=== PATIENT | female | born 1995 | race Caucasian/White ===

== ENCOUNTER 2018-01-02 12:50 | Outpatient (CLI) | payer BC, OTHER ==
[2018-01-02 14:22] LABS: HGB - HEMOGLOBIN 11.4 g/dL (12.0-16.0); MEAN CORPUSCULAR HEMOGLOBIN 32.2 pg (27.0-31.0); MEAN CORPUSCULAR HGB CONC 35.2 g/dL (32.0-36.0); MEAN CORPUSCULAR VOLUME 91.6 fL (81.0-99.0); MEAN PLATELET VOLUME 7.4 fL (7.9-10.8); RED BLOOD COUNT 3.55 10^6/uL (4.20-5.40); RED CELL DISTRIBUTION WIDTH 13.1 % (12.0-15.0); WHITE BLOOD COUNT 10.7 x10^3/uL (4.8-10.8)
== END 2018-01-02 12:51 | disposition home or self-care (01) ==
LOC: LAB 12:50
PROVIDERS: ATTEND Obstetrics & Gynecology
DX: Z34.90 Encounter for supervision of normal pregnancy, unspecified, unspecified trimester (principal)
CPT/HCPCS: 36415; 82950; 85027; 86850

== ENCOUNTER 2018-01-16 07:18 | Outpatient (CLI) | payer BC, OTHER | END 2018-01-16 07:19 | disposition home or self-care (01) | LOC: LAB 07:18 | PROVIDERS: ATTEND Obstetrics & Gynecology | DX: O99.810 Abnormal glucose complicating pregnancy (principal) | CPT/HCPCS: 36415; 82951; 82952 ==

== ENCOUNTER 2018-02-20 16:21 | Outpatient (CLI) | payer BC, OTHER ==
[2018-02-20] MEDS ORDERED: TERBUTALINE 1 MG/ML VIAL SUBQ ONE (19:11)
[2018-02-20] MEDS ORDERED: TERBUTALINE 2.5 MG TABLET PO ONE (20:08)
[2018-02-20 20:49] VITALS: BP 124/64
[2018-02-20] MEDS ORDERED: NIFEdipine 10 MG CAPSULE PO PRN (21:06)
[2018-02-20] MEDS ORDERED: NIFEdipine 10 MG CAPSULE PO ONE (21:21)
[2018-02-20] MEDS ORDERED: NIFEdipine ER 90 MG TABLET PO ONE (22:00)
[2018-02-21] MEDS ORDERED: TERBUTALINE 2.5 MG TABLET PO ONE (02:30)
== END 2018-02-21 02:00 | disposition home or self-care (01) ==
LOC: WFO 16:21 → FBP 19:27 → WFO 02-21 02:00
PROVIDERS: ATTEND Obstetrics & Gynecology
DX: O36.8130 Decreased fetal movements, third trimester, not applicable or unspecified (principal); Z3A.31 31 weeks gestation of pregnancy; O24.419 Gestational diabetes mellitus in pregnancy, unspecified control
CPT/HCPCS: 59025; 96372; 99213; A9270

== ENCOUNTER 2018-02-21 08:46 | Outpatient (CLI) | payer BC, OTHER ==
[2018-02-21 08:57] VITALS: BP 135/60
== END 2018-02-21 09:35 | disposition home or self-care (01) ==
LOC: WFO 08:46 → FBP 08:47 → WFO 09:35
PROVIDERS: ATTEND Obstetrics & Gynecology
DX: O99.89 Other specified diseases and conditions complicating pregnancy, childbirth and the puerperium (principal); R07.9 Chest pain, unspecified; Z3A.32 32 weeks gestation of pregnancy
CPT/HCPCS: 93005; 99213

== ENCOUNTER 2018-02-21 09:39 | Emergency (ER) | payer BC, OTHER ==
[2018-02-21 10:10] LABS: BASOPHILS # (AUTO) 0.1 10^3/uL (0.0-0.1); BASOPHILS % (AUTO) 0.4 %; EOSINOPHILS % (AUTO) 0.1 %; HGB - HEMOGLOBIN 10.8 g/dL (12.0-16.0); LYMPHOCYTES # (AUTO) 1.4 10^3/uL (1.5-3.5); LYMPHOCYTES % (AUTO) 11.1 %; MEAN CORPUSCULAR HEMOGLOBIN 31.5 pg (27.0-31.0); MEAN CORPUSCULAR HGB CONC 35.2 g/dL (32.0-36.0); MEAN CORPUSCULAR VOLUME 89.6 fL (81.0-99.0); MEAN PLATELET VOLUME 7.5 fL (7.9-10.8); MONOCYTES # (AUTO) 0.7 10^3/uL (0.0-1.0); MONOCYTES % (AUTO) 5.3 %; NEUTROPHILS # (AUTO) 10.8 10^3/uL (1.5-6.6); NEUTROPHILS % (AUTO) 83.1 %; PLT - PLATELET COUNT 175 10^3/uL (130-450); RED BLOOD COUNT 3.44 10^6/uL (4.20-5.40); RED CELL DISTRIBUTION WIDTH 12.9 % (12.0-15.0)
[2018-02-21 10:26] LABS: ALBUMIN 3.1 g/dL (3.2-5.5); ALBUMIN/GLOBULIN RATIO 0.9 (1.0-2.2); BILIRUBIN,TOTAL 0.4 mg/dL (0.2-1.0); CALCIUM 8.1 mg/dL (8.5-10.3); CREATININE 0.5 mg/dL (0.4-1.0); TOTAL PROTEIN 6.4 g/dL (6.7-8.2)
[2018-02-21 10:41] LABS: BILIRUBIN,URINE NEGATIVE (NEGATIVE); GLUCOSE, URINE (UA) NEGATIVE (NEGATIVE); KETONES,URINE (UA) NEGATIVE (NEGATIVE); LEUKOCYTE ESTERASE, URINE TRACE (NEGATIVE); NITRITE,URINE NEGATIVE (NEGATIVE); OCCULT BLOOD,URINE MODERATE (NEGATIVE); PROTEIN,URINE NEGATIVE (NEGATIVE); UROBILINOGEN,URINE 0.2 (NORMAL) E.U./dL (NORMAL)
[2018-02-21 10:42] LABS: CLARITY,URINE SL. CLOUDY (CLEAR)
[2018-02-21] MEDS ORDERED: LIDOCAINE VISCOUS 2% 15 ML UDC MM STA ×2 (10:49→11:22)
[2018-02-21] MEDS ORDERED: MAG HYDROX/AL HYDROX/SIMETH 30 ML UDC PO STA ×2 (10:50→11:22)
[2018-02-21 10:58] LABS: BACTERIA,URINE Few /HPF (None Seen); RBC,URINE 0-5 /HPF (0-5); SQUAMOUS EPITHELIAL CELL,UR FEW Squamous (<= Few)
[2018-02-21] MEDS ORDERED: SUCRALFATE 1 GM/10 ML UDC PO STA (11:22)
--- NOTE | 2018-02-21 11:25 | ED Physician Documentation ---
PD HPI CHEST PAIN - Stated complaint Stated Complaint: CHEST PX, L ARM PX - Chief complaint Chief Complaint: General - History obtained from History obtained from: Patient, Family - History of Present Illness Timing - onset: Enter time (0700), Today Timing - onset during: Rest Timing - duration: Hours Timing - details: Abrupt onset, Still present Quality: Pressure, Sharp Location: Left chest Radiation: Neck Improved by: Rest Associated symptoms: Nausea. No: Shortness of air, Diaphoresis, General Weakness, Palpitations Similar symptoms before: Has not had sx before Recently seen: Admitted - Additional information Additional information: Patient is a 22-year-old 1 para 0 who is at 24 weeks gestation who has developed some decreased movement and was evaluated in OB last night and given some terbutaline and nifediapine for more than 6 contractions per hour. She states that she went home about 2:30 in the morning took a second dose of her terbutaline as instructed and about 7:30 in the morning she developed pain in the left chest radiating to the left arm and heaviness to the left arm. She describes the pain as a pressure in the chest radiating to her back. Review of Systems Constitutional: denies: Fever Eyes: denies: Decreased vision Ears: denies: Ear pain Nose: denies: Congestion Throat: denies: Sore throat Cardiac: reports: Chest pain / pressure. denies: Palpitations, Pedal edema, Calf pain Respiratory: denies: Dyspnea, Cough GI: denies: Abdominal Pain, Abdominal Swelling, Nausea, Vomiting : denies: Dysuria, Frequency Skin: denies: Rash Musculoskeletal: denies: Neck pain, Back pain, Extremity pain Neurologic: denies: Generalized weakness, Focal weakness, Numbness PD PAST MEDICAL HISTORY - Past Medical History Past Medical History: No - Past Surgical History Past Surgical History: No - Allergies Allergies/Adverse Reactions: Allergies Allergy/AdvReac Type Severity Reaction Status Date / Time Iodinated Contrast- Oral and Allergy Severe Anaphylaxis Verified 02/20/18 16:58 IV Dye iodine Allergy Severe Anaphylaxis Verified 02/20/18 17:00 NSAIDS (Non-Steroidal Allergy Severe Anaphylaxis Verified 02/20/18 17:01 Anti-Inflamma omeprazole [From Prilosec] Allergy Severe Anaphylaxis Verified 02/20/18 17:00 peanut Allergy Severe Anaphylaxis Verified 02/20/18 17:11 shellfish derived Allergy Severe Anaphylaxis Verified 02/20/18 17:09 Sulfa (Sulfonamide Allergy Severe Anaphylaxis Verified 02/20/18 17:00 Antibiotics) tree nut Allergy Severe Anaphylaxis Verified 02/20/18 17:11 - Social History Does the pt smoke?: No Smoking Status: Never smoker Does the pt drink ETOH?: No Does the pt have substance abuse?: No - Immunizations Immunizations are current?: Yes PD ED PE NORMAL - Vitals Vital signs reviewed: Yes (tachy and hypertensive mild ) - General General: Alert and oriented X 3, Well developed/nourished, Other - HEENT HEENT: Atraumatic, PERRL - Neck Neck: Supple, no meningeal sign - Cardiac Cardiac: No murmur, Other (tachy to 115) - Respiratory Respiratory: No respiratory distress, Clear bilaterally - Abdomen Abdomen: Soft, Non tender, Other (gravid) - Back Back: No CVA TTP, No spinal TTP - Derm Derm: Normal color, Warm and dry, No rash - Extremities Extremities: No deformity, No edema - Neuro Neuro: Alert and oriented X 3, air traffic controller center 2-12 intact, No motor deficit, No sensory deficit, Normal speech Eye Opening: Spontaneous Motor: Obeys Commands Verbal: Oriented GCS Score: 15 - Psych Psych: Normal mood, Normal affect Results - Vitals Vitals: Vital Signs - 24 hr 02/21/18 02/21/18 02/21/18 09:50 10:51 11:38 Temperature 36.4 C L Heart Rate 117 H 110 H 104 H Respiratory 18 14 19 Rate Blood Pressure 134/70 H 136/77 H 139/81 H O2 Saturation 98 99 99 02/21/18 13:38 Temperature Heart Rate 105 H Respiratory 18 Rate Blood Pressure 115/70 O2 Saturation 98 Oxygen O2 Source Room air - EKG (time done) 0911 Rate: Rate (enter#) (129) Rhythm: Sinus tachycardia Ischemia: ST depression (borderline lateral leads) Compare to prior EKG: Old EKG unavailable Computer interpretation: Disagree with computer (I do not see pair ventricular complexes) 0943 Rate: Rate (enter#) (122) Rhythm: Sinus tachycardia Ischemia: ST depression (borderline in lateral leads ) Compare to prior EKG: Changed from prior EKG (SPT earlier today the rate has decreased slightly and the previously seen ST depression is nearly resolved. ) Computer interpretation: Agree with computer - Labs Labs: Laboratory Tests 02/21/18 02/21/18 02/21/18 10:04 10:04 10:04 WBC 13.0 H RBC 3.44 L Hgb 10.8 L Hct 30.8 L MCV 89.6 MCH 31.5 H MCHC 35.2 RDW 12.9 Plt Count 175 MPV 7.5 L Neut # (Auto) 10.8 H Lymph # (Auto) 1.4 L [place] # (Auto) 0.7 Eos # (Auto) 0.0 Baso # (Auto) 0.1 Absolute Nucleated RBC 0.00 Nucleated RBC % 0.0 Sodium 137 Potassium 2.9 L Chloride 105 Carbon Dioxide 22 Anion Gap 10.0 BUN 7 Creatinine 0.5 Estimated GFR (MDRD) 152 Glucose 119 H Calcium 8.1 L Total Bilirubin 0.4 AST 16 ALT 14 Alkaline Phosphatase 83 Troponin I < 0.04 Total Protein 6.4 L Albumin 3.1 L Globulin 3.3 Albumin/Globulin Ratio 0.9 L Lipase 23 Urine Color Urine Clarity Urine pH Ur Specific [place] Urine Protein Urine Glucose (UA) Urine Ketones Urine Occult Blood Urine Nitrite Urine Bilirubin Urine Urobilinogen Ur Leukocyte Esterase Urine RBC Urine WBC Ur Squamous Epith Cells Urine Bacteria Ur Microscopic Review Urine Culture Comments 02/21/18 02/21/18 10:29 12:32 WBC RBC Hgb Hct MCV MCH MCHC RDW Plt Count MPV Neut # (Auto) Lymph # (Auto) [place] # (Auto) Eos # (Auto) Baso # (Auto) Absolute Nucleated RBC Nucleated RBC % Sodium Potassium Chloride Carbon Dioxide Anion Gap BUN Creatinine Estimated GFR (MDRD) Glucose Calcium Total Bilirubin AST ALT Alkaline Phosphatase Troponin I < 0.04 Total Protein Albumin Globulin Albumin/Globulin Ratio Lipase Urine Color YELLOW Urine Clarity SL. CLOUDY Urine pH 7.0 Ur Specific [place] 1.015 Urine Protein NEGATIVE Urine Glucose (UA) NEGATIVE Urine Ketones NEGATIVE Urine Occult Blood MODERATE H Urine Nitrite NEGATIVE Urine Bilirubin NEGATIVE Urine Urobilinogen 0.2 (NORMAL) Ur Leukocyte Esterase TRACE H Urine RBC 0-5 Urine WBC 0-3 Ur Squamous Epith Cells FEW Squamous Urine Bacteria Few Ur Microscopic Review INDICATED Urine Culture Comments INDICATED - Rads (name of study) 2 veiw chest Radiology: Prelim report reviewed (Impression: Normal two-view chest radiography.), EMP read indepedently, See rad report PD MEDICAL DECISION MAKING - ED course Complexity details: reviewed old records, reviewed results, re-evaluated patient, considered differential, d/w patient, d/w family ED course: 22 y/o female at 24 weeks has developed chest pain after a dose of terbutiline this morning and this pain has persisted. Her contractions have stopped. She is administered a GI cocktail with some improvement that is temporary and not resolving. A second dose had no effect and my interpretation of this is that the pain is not in the esophagus. The patient's pulse is 120 on arrival and this improves over the time period of the visit. The patient is administered PO tylenol with improvement of her symptoms and now she can tease out a pleuritic component that is still present. Two troponins are negative and CXR is without abnormality to suggest any specific etiology such as dissection or infiltrate. We are going to blame this pain on the terbutiline and she will not take this medication. She did take nifedapine last night and her contractions are still under control. Dr. Joy is consulted in the case and comes to the ED for evaluation and assistance. Departure - Departure Disposition: 01 Home, Self Care Clinical Impression: Chest pain of uncertain etiology, Medication side effect Condition: Stable Instructions: ED Chest Pain Atypical Unkn Cause Follow-Up: Paul Joy MD [Provider Admit Priv/Credential] - Discharge Date/Time: 02/21/18 14:13
[2018-02-21] MEDS ORDERED: ACETAMINOPHEN 325 MG TABLET PO STA (13:00)
[2018-02-21 13:39] VITALS: BP 115/70
--- NOTE | 2018-02-21 13:41 | XRAY Report ---
Reason: left sided chest pain Procedure Date: 02/21/2018 Accession Number: [id number] / [id number] Procedure: XR - Chest 2 View X-Ray CPT Code: 25912 FULL RESULT: EXAM: CHEST RADIOGRAPHY EXAM DATE: 02/21/2018 01:26 PM. CLINICAL HISTORY: Left sided chest pain. COMPARISON: None. TECHNIQUE: 2 views. FINDINGS: Lungs/Pleura: Normal volumes. No focal consolidation or evidence of edema. No pleural effusion or pneumothorax. Mediastinum: Normal cardiomediastinal contour. Other: The bones are normal IMPRESSION: Normal 2-view chest radiography. RADIA
== END 2018-02-21 14:13 | disposition home or self-care (01) ==
LOC: ED 09:39
DX: O26.892 Other specified pregnancy related conditions, second trimester (principal); R07.9 Chest pain, unspecified; T48.6X5A Adverse effect of antiasthmatics, initial encounter; O99.89 Other specified diseases and conditions complicating pregnancy, childbirth and the puerperium; Z3A.24 24 weeks gestation of pregnancy; Z3A.32 32 weeks gestation of pregnancy
CPT/HCPCS: 36415; 71046; 80053; 81001; 83690; 84484; 85025; 87086; 93005; 99284; A9270; 81003; 99213

== ENCOUNTER 2018-03-03 15:33 | Outpatient (CLI) | payer BC, OTHER | END 2018-03-03 15:34 | disposition home or self-care (01) | LOC: LAB.R 15:33 | PROVIDERS: ATTEND Obstetrics & Gynecology | DX: O60.03 Preterm labor without delivery, third trimester (principal) | CPT/HCPCS: 82731 ==

== ENCOUNTER → 2018-03-17 | Outpatient (CLI) | payer BC, OTHER | LOC: LAB.R 17:15 | PROVIDERS: ATTEND Obstetrics & Gynecology | DX: Z36.85 Encounter for antenatal screening for Streptococcus B (principal) | CPT/HCPCS: 87081; 87797 ==

== ENCOUNTER 2018-03-21 18:35 | Outpatient (CLI) | payer BC, OTHER ==
[2018-03-21 18:59] VITALS: BP 135/86
[2018-03-21 19:14] LABS: BILIRUBIN,URINE NEGATIVE (NEGATIVE); GLUCOSE, URINE (UA) NEGATIVE (NEGATIVE); KETONES,URINE (UA) 15 mg/dL (NEGATIVE); LEUKOCYTE ESTERASE, URINE TRACE (NEGATIVE); NITRITE,URINE NEGATIVE (NEGATIVE); OCCULT BLOOD,URINE TRACE-INTA (NEGATIVE); PROTEIN,URINE NEGATIVE (NEGATIVE); UROBILINOGEN,URINE 0.2 (NORMAL) E.U./dL (NORMAL)
[2018-03-21 19:16] LABS: CLARITY,URINE CLEAR (CLEAR)
[2018-03-21 19:22] LABS: BACTERIA,URINE Rare /HPF (None Seen); RBC,URINE 0-5 /HPF (0-5); SQUAMOUS EPITHELIAL CELL,UR FEW Squamous (<= Few)
== END 2018-03-21 22:11 | disposition home or self-care (01) ==
LOC: WFO 18:35 → FBP 18:38 → WFO 22:11
PROVIDERS: ATTEND Obstetrics & Gynecology
DX: O47.03 False labor before 37 completed weeks of gestation, third trimester (principal); Z3A.36 36 weeks gestation of pregnancy
CPT/HCPCS: 81001; 99213

== ENCOUNTER 2018-04-14 16:19 | Outpatient (CLI) | payer BC, OTHER ==
[2018-04-14 16:38] LABS: BASOPHILS % (AUTO) 0.4 %; EOSINOPHILS # (AUTO) 0.1 10^3/uL (0.0-0.7); EOSINOPHILS % (AUTO) 0.6 %; LYMPHOCYTES # (AUTO) 2.1 10^3/uL (1.5-3.5); LYMPHOCYTES % (AUTO) 19.4 %; MEAN CORPUSCULAR HEMOGLOBIN 29.6 pg (27.0-31.0); MEAN CORPUSCULAR HGB CONC 33.3 g/dL (32.0-36.0); MEAN CORPUSCULAR VOLUME 89.1 fL (81.0-99.0); MEAN PLATELET VOLUME 8.7 fL (7.9-10.8); MONOCYTES # (AUTO) 0.8 10^3/uL (0.0-1.0); MONOCYTES % (AUTO) 7.3 %; NEUTROPHILS % (AUTO) 72.3 %; PLT - PLATELET COUNT 198 10^3/uL (130-450); RED BLOOD COUNT 4.05 10^6/uL (4.20-5.40); RED CELL DISTRIBUTION WIDTH 13.1 % (12.0-15.0); WHITE BLOOD COUNT 11.1 x10^3/uL (4.8-10.8)
== END 2018-04-14 16:20 | disposition home or self-care (01) ==
LOC: LAB 16:19
PROVIDERS: ATTEND Obstetrics & Gynecology
DX: Z01.812 Encounter for preprocedural laboratory examination (principal); O32.1XX0 Maternal care for breech presentation, not applicable or unspecified
CPT/HCPCS: 36415; 85025; 86850; 86900; 86901

== ENCOUNTER 2018-04-15 06:00 | Inpatient (IN) | payer BC, OTHER ==
--- NOTE | 2018-04-14 18:08 | PREOP HISTORY & PHYSICAL ---
DATE OF SERVICE: 04/14/2018 Physician: Jemma Nogueira DO IDENTIFICATION: This is a 22-year-old G1, P0 with a 39-4/7 week intrauterine . EDC is 04/04, consistent with a 10-week ultrasound. HISTORY OF PRESENT ILLNESS: This is a patient of [facility] who had transferred her care from the [facility] over to us. Patient has been noted to have a breech presentati on of her baby girl Ildefonso for the past several weeks. Today on a bedside ultrasound, I have reconf irmed that the baby does continue to be a dev breech. Patient is accompanied today by her Greta doshi. I discussed with patient and Alvino the risks, benefits, alternatives and indications and exp ectations of a primary delivery for breech presentation. Included in our discussion of the risks of hemorrhage, infection and damage to surrounding organs, which may include, but are not limit ed to an inadvertent laceration, cauterization or ligation of the adjacent ureters, bladder, and inte saturnino. Furthermore, with the surgery, she may have nerve damage which may result in either a prickl ing sort of sensation or numbness around the incision. Surgery is known to cause adhesions, which ma y lead to chronic pelvic pain. After patient questions were answered to her satisfaction, she verbal ized her desire to proceed with surgery. Consents forms have been signed. I did tell patient that I intend to do a low transverse section of her uterus, so that in the future, should she deci de to that would be a viable option. Currently, patient is doing well. Denies any vaginal bleeding, loss of fluids or contractions. Baby bandar Fregoso is moving well. She denies any diarrhea, constipation, or diarrhea. PAST MEDICAL HISTORY: None. She denies any hypertension, diabetes, thyroid disorder, asthma, depres melissa or anxiety. PAST SURGICAL HISTORY: [place] teeth, colonoscopy and EGD. MEDICATIONS: 1. vitamins. 2. Zyrtec 10 mg p.r.n. ALLERGIES: 1. BACTRIM IN WHICH SHE HAS HIVES AND ANAPHYLAXIS. 2. LATEX IN WHICH SHE HAS A RASH. 3. NSAIDS AND PRILOSEC. SHE HAS ANAPHYLAXIS. SOCIAL HISTORY: She denies any tobacco, alcohol or illicit drug use. PAST SURGICAL HISTORY, CURRENT: Significant for breech presentation as well as GDM 1. Her diabetes has been well controlled slowly by diet. PAST GYNECOLOGICAL HISTORY: She denies any abnormal Pap smears and also denies any sexually transmit briseida diseases. She would like to breastfeed and has a breast pump at home. FAMILY HISTORY: Noncontributory. REVIEW OF SYSTEMS: Negative unless otherwise noted. PHYSICAL EXAMINATION: VITAL SIGNS: Weight is 199 pounds, blood pressure 130/82. GENERAL: Patient is a well-developed, well-nourished, female, in no apparent distress. She is alert and oriented x3. Patient is very pleasant and easy to speak to. HEENT: Within normal limits. HEART: Regular. No murmurs or rubs. LUNGS: Lungs are clear to auscultation bilaterally. ABDOMEN: Gravid, nontender. Estimated weight is 8 pounds. Baby continues to be a dev breec h with the back towards the maternal left side. LABORATORY STUDIES: Show that she is A positive, antibody screen is negative. Hepatitis B nonreacti ve. hep C nonreactive, rubella immune. GC and CT are both negative. HIV is nonreactive. One-hour GTT on 01/02/2018 was 173 and H and H at that time was 11.4 and 32.5, platelets 185. Three-hour GTT performed on 01/16/2018 showed elevated 1-hour/2 hour results. Fasting One-hour GTT is 193, 2-hour i s 158 and 3 hour is 82. On 11/28/2017, anatomical survey was consistent with dates and within normal limits. The anterior placenta is noted with a 3-vessel cord. Cervix measures 4.7 cm. ASSESSMENT: 1. A 22-year-old G1, P0 with a 39-4/7 week intrauterine . 2. Breech presentation. 3. Gestational diabetes mellitus A1, well controlled. PLAN: 1. We will proceed to a scheduled primary delivery on 04/15/2018 for breech presentation. 2. It will be difficult in terms of controlling patient's pain since she cannot take NSAIDs. Kelin rangel has been told to take Tylenol 1 gram p.o. every 8 hours and has been given a prescription for oxyc odone for any breakthrough pain. 3. Anticipate using Prevena wound VAC and patient is to return to see me next week for its removal. 4. Patient to get a CBC and type and screen as well as point of care glucose test tomorrow morning. 5. Patient is to see me for a routine 3-week visit. TD: 04/14/2018 16:41
[~2018-04-15 06:00] MED LIST: OXYTOCIN/SODIUM CHLORIDE 500 ML IV SCH; SODIUM CHLORIDE FLUSH 0.9% 10 ML SYRINGE IVP PRN; ceFAZolin 2 GM in SODIUM CHLORIDE 0.9% MINIBAG 100 ML IV SCH
[2018-04-15] MEDS ORDERED: ONDANSETRON 4 MG/2 ML VIAL IVP PRN (07:00)
[2018-04-15] MEDS: LACTATED RINGERS 1,000 ML IV SCH ×3 (07:10→22:50)
[2018-04-15] MEDS ORDERED: CITRIC ACID/SODIUM CITRATE 15 ML UDC PO ONE ×2 (07:57→09:00)
--- NOTE | 2018-04-15 08:00 | ANESTHESIA ---
Pre-Anesthesia VS, & Labs - Diagnosis Breech presentation, gestational diabetes - Procedure Section Vital Signs: Temp Pulse Resp BP Pulse Ox 36.9 C 94 16 137/88 H 100 04/15/18 07:00 04/15/18 07:00 04/15/18 07:00 04/15/18 07:00 04/15/18 07:00 Height 5 ft 6 in Weight (kg) 89.811 kg Body Mass Index 28.2 - NPO >8 hours - Is Patient ?: Yes Estimated Due Date:: 04/18/18 - Lab Results Current Lab Results: Laboratory Tests 04/15/18 07:19: POC Whole Bld Glucose 78 Lab results reviewed: Yes Home Medications and Allergies Active Medications Citric Acid/Sodium Citrate (Bicitra) 30 ml PO ONCE ONE Stop: 04/15/18 09:01 Cefazolin Sodium 2 gm/ Sodium (Chloride) 100 mls @ 200 mls/hr IV Q8H ENMANUEL Lactated Ringer's (Lr) 1,000 mls @ 150 mls/hr IV .Q6H40M ENMANUEL Last Admin: 04/15/18 07:10 Dose: 150 mls/hr Oxytocin/Sodium Chloride (Pitocin/Sodium Chloride) 500 mls @ 1 mls/hr IV TITR ENMANUEL; Protocol Ondansetron HCl (Zofran Inj) 4 mg IVP Q4H PRN PRN Reason: Nausea / Vomiting Sodium Chloride (Normal Saline Flush 0.9%) 10 ml IVP PRN PRN PRN Reason: NEEDED PER PROVIDER ORDERS Sodium Chloride (Normal Saline Flush 0.9%) 10 ml IVP 0100,0900,1700 [facility] Cetirizine [ZyrTEC] 03/21/18 Vit Calc,Iron,Folic [ Vitamins] 03/21/18 Allergies/Adverse Reactions: Allergies Allergy/AdvReac Type Severity Reaction Status Date / Time Iodinated Contrast- Oral and Allergy Severe Anaphylaxis Verified 02/20/18 16:58 IV Dye iodine Allergy Severe Anaphylaxis Verified 02/20/18 17:00 NSAIDS (Non-Steroidal Allergy Severe Anaphylaxis Verified 02/20/18 17:01 Anti-Inflamma omeprazole [From Prilosec] Allergy Severe Anaphylaxis Verified 02/20/18 17:00 peanut Allergy Severe Anaphylaxis Verified 02/20/18 17:11 shellfish derived Allergy Severe Anaphylaxis Verified 02/20/18 17:09 Sulfa (Sulfonamide Allergy Severe Anaphylaxis Verified 02/20/18 17:00 Antibiotics) tree nut Allergy Severe Anaphylaxis Verified 02/20/18 17:11 latex AdvReac Itching Verified 04/15/18 07:09 nifedipine AdvReac Anaphylaxis Verified 03/21/18 19:26 terbutaline AdvReac Anaphylaxis Verified 03/21/18 19:25 Anes History & Medical History - Anesthetic History Anesthesia Complications: reports: No previous complications Family history of Anesthesia Complications: Denies Family history of Malignant Hyperthermia: Denies - Medical History Smoking Status: Never smoker - Surgical History General: Colonoscopy, EGD Eyes Ears Nose Throat (EENT): Other (wisdom teeth extraction) - Obstetrical History : 1 Parity: 0 Events: positive: Gestational diabetes Complications: positive: Other (breech) Exam General: Alert, Oriented x3, Cooperative, No acute distress Dental: WNL Mouth Openin Fingerbreadth Neck Mobility: Normal Mallampati classification: II Thyromental Distance: 4-6 cm Respiratory: Lungs clear, Normal breath sounds, No respiratory distress Cardiovascular: Regular rate Neurological: Normal speech Mental/Cognitive Status: Alert/Oriented X3 Cognitive Status: Within normal limits Plan Anesthesia Type: Spinal Consent for Procedure(s) Verified and Reviewed: Yes Code Status: Attempt Resuscitation ASA classification: 2-Mild systemic disease Is this case an emergency?: No
[2018-04-15] MEDS ORDERED: LACTATED RINGERS 1,000 ML IV ONE (10:30)
[2018-04-15] MEDS ORDERED: OXYTOCIN/SODIUM CHLORIDE 500 ML IV ONE (10:45)
[2018-04-15] MEDS ORDERED: MORPHINE 10 MG/ML VIAL IVP ONE (10:51)
[2018-04-15] MEDS ORDERED: ePHEDrine 50 MG/ML VIAL IVP ONE (10:51)
[2018-04-15] MEDS ORDERED: fentaNYL 100 MCG/2 ML VIAL IVP ONE (10:51)
[2018-04-15] MEDS ORDERED: ACETAMINOPHEN 1,000 MG/100 ML 100 ML IV ONE (10:51)
--- NOTE | 2018-04-15 11:04 | OPERATIVE REPORT ---
Operative Report - General Admit Date: 04/15/18 - Other Other Information/Narrative: Date of Operation: 04/15/2018 Surgeon: Jemma Nogueira DO FACOG Cell Tender: Paul Joy MD FACOG Tailor'S Aide: Soraida Villatoro CRNA Anesthesia: Spinal Pre-op Dx: 1. 22 yo with a 39w4d IUP 2. Breech 3. GDMA1 Post-op Dx 1. 22 yo with a 39w4d IUP 2. Breech 3. GDMA1 Procedure: delivery Findings: Single viable female fetus in dev breech presentation, "Ildefonso". Apgars 6/8. Normal uterus, ovaries and fallopian tubes. Specimens: 1. Cord blood 2. Placenta (to medical waste) 3. Cord gases Drains: 1. Marina catheter to gravity 2. Prevena wound vac EBL: 600 mL Complications: None Dictation: [id number]
[2018-04-15] MEDS ORDERED: HYDROmorphone 2 MG TABLET PO PRN (11:07)
[2018-04-15] MEDS ORDERED: MAGNESIUM HYDROXIDE 2,400 MG/30 ML UDC PO PRN (11:07)
[2018-04-15] MEDS: OXYTOCIN/SODIUM CHLORIDE 500 ML IV SCH (12:35)
[2018-04-15] MEDS: oxyCODONE 5 MG TABLET PO SCH (14:58)
--- NOTE | 2018-04-15 17:23 | OPERATIVE REPORT ---
DATE OF OPERATION: 04/15/2018 SURGEON: Jemma Nogueira DO, FACOG DIPLOMA DENTAL ASSISTANT: Paul Joy MD FACOG MANAGER CALL: oSraida Villatoro CRNA ANESTHESIA: Spinal. PREOPERATIVE DIAGNOSES: 1. 22-year-old, G1, P0, at 39-4/7 week intrauterine . 2. Breech. 3. GDM A1. POSTOPERATIVE DIAGNOSES: 1. 22-year-old G1, P0 at 39-4/7 week intrauterine . 2. Breech. 3. GDM A1. PROCEDURE: delivery. FINDINGS: Single viable female fetus in dev breech presentation, named Ildefonso. Apgars were 6 and 8 at 1 and 5 minutes respectively. Normal uterus, ovaries and fallopian tubes. SPECIMENS: 1. Cord blood. 2. Cord gases. 3. Placenta to medical waste. DRAINS: 1. Marina catheter to gravity. 2. Prevena wound VAC. ESTIMATED BLOOD LOSS: 600 mL COMPLICATIONS: None. BRIEF HISTORY: The patient is a patient of [facility] who had care in the [place] but transferred to us. Bety was noted to have a breech presentation baby. She was offered an external cephalic version, but she declined this. I discussed with the patient the risks, benefits, alternatives, indications, and expectations of a delivery. Included in our discussion of the risks of hemorrhage, infection and damage to surrounding organs, which may include, but not limited to an inadvertent laceration, cauterization or ligation of the adjacent intestines, bladder and ureters. Furthermore, with the surgery, there can be a permanent nerve damage, as well as chronic pelvic pain secondary to adhesions. After all of the patient's questions were answered to her satisfaction, she verbalized her desire to proceed to a scheduled delivery. Consent forms have been signed. OPERATIVE PROCEDURE IN DETAIL: The patient was identified, consented, taken to the operating room where IV access was already in place. She was then given a satisfactory spinal anesthesia per Soraida Villatoro. The patient was then given a Marina catheter and then prepped and draped in normal sterile fashion in the dorsal supine position with a leftward tilt. Skin testing was found to be satisfactory. A timeout was performed, which correctly identified the patient and the procedure itself. Two grams of IV Ancef were given to the patient prior to start of incision. The Pfannenstiel skin incision was made approximately 2 fingerbreadths above the level of pubic symphysis. This incision was then carried to the underlying layer of fascia with electrocautery and then extended laterally. Rectus muscles were then dissected off the fascia. The rectus muscles were then bluntly in the midline and the peritoneum entered bluntly as well. A bladder flap was then created by dissecting out the vesicouterine peritoneum. In a transverse U-shaped fashion, the hysterotomy was made in the lower uterine segment. Amniotomy revealed yellow tinged amniotic fluid with mature meconium floating in the water. With the help of fundal pressure, the 's buttocks were delivered through the hysterotomy. The hips were then rotated to be sacrum anterior. A blue clot was then placed on top of the fetus. The baby was then delivered through the level of the nipples. The legs were then gently delivered. The right shoulder was rotated anteriorly and the right arm was swept medially and inferiorly in order to avoid hyperextension. In a similar fashion, the left shoulder was then rotated anteriorly and then the left arm was swept medially and inferiorly. A finger was placed in the mouth in order to flex the neck and to avoid hyperextension. With the help of fundal pressure, the infant's head delivered through the hysterotomy. The nose and mouth were suctioned with a bulb syringe. The umbilical cord was doubly clamped and cut and handed off to the waiting OB nurses. The baby did not have spontaneous breaths immediately after delivery. Apgars were later found to be 6 and 8 at 1 and 5 minutes respectively. Cord gases were obtained in addition to cord blood. The uterus was massaged and placenta delivered manually. The uterus was then delivered out of the abdomen and cleared of all clots and debris. The hysterotomy was closed with 2 sutures of 0 Vicryl in a running locked fashion and then in an imbricating fashion using Lembert stitch. There was some bleeding on the right aspect of the uterus that was hemostatically controlled with 0 Vicryl. There were some areas of decidual effect on the uterus on the anterior surface by the right corner and then on the upper left corner by the insertion of the fallopian tube. Electrocautery was used to obtain hemostasis. The cul-de-sac was irrigated and found to be hemostatically stable. The uterus was then returned to the abdomen and the abdomen was then irrigated. Some bleeding was noted in the right corner and another suture of 0 Vicryl stopped the bleeding. The peritoneum was then closed with a running stitch of 2-0 Vicryl. The same stitch was used to reapproximate the rectus muscles. Fascia was then closed with 0 Vicryl in a running fashion. Yanira's fascia was then reapproximated with 0 Vicryl in a running fashion. Skin was then closed with 4- 0 Monocryl and a Prevena wound VAC was placed on top of the incision. The patient tolerated the procedure well and was taken back to the recovery room in stable and awake condition. She will be given routine Tylenol and oxycodone. Unfortunately, the patient cannot tolerate NSAIDs as it GIVES HER ANAPHYLAXIS. All sponge, lap, and needle counts were correct x2 as per nurse. TD: 04/15/2018 11:17 [email or web address]
[2018-04-15] MEDS: ACETAMINOPHEN 500 MG TABLET PO SCH (17:57)
[2018-04-15] MEDS: SODIUM CHLORIDE FLUSH 0.9% 10 ML SYRINGE IVP SCH ×2 (20:56→20:58)
[2018-04-15] MEDS: SIMETHICONE CHEW 80 MG TABLET PO SCH (21:28)
[2018-04-15] MEDS: DOCUSATE SODIUM 100 MG CAPSULE PO SCH ×2 (21:37→22:51)
[2018-04-16] MEDS: ACETAMINOPHEN 500 MG TABLET PO SCH ×3 (03:44→18:45)
[2018-04-16] MEDS: oxyCODONE 5 MG TABLET PO SCH ×5 (04:08→20:13)
[2018-04-16] MEDS: SIMETHICONE CHEW 80 MG TABLET PO SCH ×3 (09:13→18:45)
--- NOTE | 2018-04-16 11:12 | ANESTHESIA POST OP EVALUATION ---
Anesthesia Post Eval - Post Anesthesia Eval CV Function Including HR & BP: positive: Stable Pain Control: positive: Adequate Nausea & Vomiting: positive: Negative Mental Status: positive: Appropriate Anesthesia Complications: positive: None (Pt denies any numbness, weakness or headache. Reported adequate surgical anesthesia. No apparent anesthesia complications)
[2018-04-16] MEDS: DOCUSATE SODIUM 100 MG CAPSULE PO SCH (13:05)
--- NOTE | 2018-04-16 13:26 | PROVIDER PROGRESS NOTE ---
Subjective - Prog Note Date Prog Note Date: 04/16/18 Prog Note Time: 13:24 - Subjective Pt reports feeling: Improved (Patient lying in bed. and parents at bedside. Wound vac was beeping. Ambulating and tolerating a regular diet.) Objective - Vital Signs/Intake & Output Vital Signs: Vital Signs x48h Temp Pulse Resp BP Pulse Ox 04/16/18 12:33 98.4 F 82 16 133/70 H 99 04/16/18 10:00 98.8 F 85 16 135/79 H 99 Intake & Output: Intake & Output 04/13/18 04/14/18 04/15/18 04/16/18 23:59 23:59 23:59 23:59 Intake Total 4980 2150 Output Total 1950 3650 Balance 3030 -1500 - Objective General Appearance: positive: No acute distress Abdomen: positive: Non-tender (Wound vac in place and working well. Instructions given.) Neurologic/Psychiatric: positive: Oriented x3, Sensation nml, Mood/affect nml Assessment/Plan - Problem List (1) delivery delivered Impression: 22 yo S/p CD, POD #1 Normal recovery Continue current care D/C saline lock Shower today. Miralax PRN [place] home tomorrow
[2018-04-16] MEDS ORDERED: POLYETHYLENE GLYCOL 3350 17 GM PACKET PO PRN (13:28)
[2018-04-17] MEDS: oxyCODONE 5 MG TABLET PO SCH ×4 (00:02→13:12)
[2018-04-17] MEDS: ACETAMINOPHEN 500 MG TABLET PO SCH ×2 (01:51→10:52)
[2018-04-17] MEDS: DOCUSATE SODIUM 100 MG CAPSULE PO SCH ×2 (06:45→13:07)
[2018-04-17] MEDS: SODIUM CHLORIDE FLUSH 0.9% 10 ML SYRINGE IVP SCH (08:01)
[2018-04-17] MEDS: SIMETHICONE CHEW 80 MG TABLET PO SCH ×2 (08:03→09:07)
[2018-04-17] MEDS: OXYTOCIN/SODIUM CHLORIDE 500 ML IV SCH (08:03)
[2018-04-17 08:50] VITALS: BP 131/77
--- NOTE | 2018-04-17 09:02 | Discharge Plan ---
Discharge Plan Disposition: 01 Home, Self Care Condition: Good Diet: Regular Activity Restrictions: Activity as Tolerated Shower Restrictions: No Driving Restrictions: No No Smoking: If you smoke, Please STOP! Call for help. Follow-up with: Jemma Nogueira DO [Provider Admit Priv/Credential] -
[2018-04-17 10:00] LABS: BASOPHILS # (AUTO) 0.1 10^3/uL (0.0-0.1); BASOPHILS % (AUTO) 0.6 %; EOSINOPHILS # (AUTO) 0.1 10^3/uL (0.0-0.7); EOSINOPHILS % (AUTO) 0.7 %; HGB - HEMOGLOBIN 10.5 g/dL (12.0-16.0); MEAN CORPUSCULAR HEMOGLOBIN 30.3 pg (27.0-31.0); MEAN CORPUSCULAR HGB CONC 34.4 g/dL (32.0-36.0); MEAN CORPUSCULAR VOLUME 88.2 fL (81.0-99.0); MEAN PLATELET VOLUME 7.9 fL (7.9-10.8); MONOCYTES # (AUTO) 0.7 10^3/uL (0.0-1.0); MONOCYTES % (AUTO) 5.4 %; NEUTROPHILS # (AUTO) 10.5 10^3/uL (1.5-6.6); NEUTROPHILS % (AUTO) 78.3 %; PLT - PLATELET COUNT 200 10^3/uL (130-450); RED BLOOD COUNT 3.45 10^6/uL (4.20-5.40); RED CELL DISTRIBUTION WIDTH 13.1 % (12.0-15.0); WHITE BLOOD COUNT 13.3 x10^3/uL (4.8-10.8)
--- NOTE | 2018-04-17 11:48 | DISCHARGE SUMMARY ---
Physician: Paul Eagle MD DATE OF ADMISSION: 04/14/2018 DATE OF DISCHARGE: 04/17/2018 DIAGNOSES 1. Primary section for confirmed persistent breech. 2. rejected after counseling. PROCEDURE PERFORMED: Primary lower segment transverse section, yielding a living female . COMPLICATIONS: None. HISTORY: Patient received her care at both the [facility] and the [facility]. She transferred care to [facility] and was found to be a persistent breech presentation. Reference Dr. Nogueira's detailed preoperative history. HOSPITAL COURSE: The patient was admitted for a section. She received a customary [facility] preoperative antibiotics. Fetus was confirmed in the dev breech presentation. Surgery proceeded uneventfully to yield a living female weighing xx with Apgars of 6 and 8. Refer to 's Op Note. Total blood loss was 600 mL, and the patient went to the recovery room in good condition. Postoperatively, the patient did well and was hemodynamically stable. The patient's glucose fingersticks were good postopn(78). Postop Hgb = 10.6 On postoperative day #2, I had a conversation with the patient and she strongly desired discharge home. I explained to her that she should have help at home and her parents have come from [place] for that purpose. We reviewed warning sign and callback instructions. Final wound check found a wound VAC functional and no problems with mild lochia. FOLLOWUP: The patient will see Dr. Nogueira in one week for wound VAC removal. DISCHARGE MEDICATIONS 1. Celebrex and [place] 325/5 po q4h prn for breakthrough pain. 2. Colace. TD: 04/17/2018 09:21 [facility]
== END 2018-04-17 13:20 | disposition home or self-care (01) | DRG 788 ==
LOC: FBP 06:00
PROVIDERS: ADMIT Obstetrics & Gynecology; ATTEND Obstetrics & Gynecology
PROC: 10D00Z1 Extraction of Products of Conception, Low, Open Approach (ICD-10-PCS; principal; 2018-04-15 08:45)
DX: O32.1XX0 Maternal care for breech presentation, not applicable or unspecified (principal); O24.420 Gestational diabetes mellitus in childbirth, diet controlled; Z3A.39 39 weeks gestation of pregnancy; Z37.0 Single live birth; Z88.6 Allergy status to analgesic agent
CPT/HCPCS: 36415; 85025

== ENCOUNTER 2018-06-05 07:58 | Outpatient (CLI) | payer BC, OTHER | END 2018-06-05 07:59 | disposition home or self-care (01) | LOC: LAB 07:58 | PROVIDERS: ATTEND Obstetrics & Gynecology | DX: Z86.32 Personal history of gestational diabetes (principal) | CPT/HCPCS: 36415; 82951 ==

== ENCOUNTER 2018-08-27 18:51 | Emergency (ER) | payer BC, OTHER ==
[2018-08-27] MEDS ORDERED: SODIUM CHLORIDE 0.9% 1,000 ML IV ONE ×2 (19:01→20:00)
[2018-08-27] MEDS ORDERED: ONDANSETRON 4 MG/2 ML VIAL IVP STA (19:01)
[2018-08-27 19:15] LABS: GLUCOSE, URINE (UA) NEGATIVE (NEGATIVE); KETONES,URINE (UA) >=80 mg/dL (NEGATIVE); LEUKOCYTE ESTERASE, URINE NEGATIVE (NEGATIVE); NITRITE,URINE NEGATIVE (NEGATIVE); OCCULT BLOOD,URINE SMALL (NEGATIVE); PH,URINE 5.5 PH (5.0-7.5); PROTEIN,URINE TRACE mg/dL (NEGATIVE); UROBILINOGEN,URINE 0.2 (NORMAL) E.U./dL (NORMAL)
[2018-08-27 19:18] LABS: BILIRUBIN,URINE NEGATIVE (NEGATIVE); CLARITY,URINE CLEAR (CLEAR); HCG UR QUAL NEGATIVE; ICTOTEST,URINE NEGATIVE
[2018-08-27 19:26] LABS: BACTERIA,URINE None Seen /HPF (None Seen); RBC,URINE 0-5 /HPF (0-5); SQUAMOUS EPITHELIAL CELL,UR FEW Squamous (<= Few)
[2018-08-27 19:27] LABS: BASOPHILS % (AUTO) 0.1 %; EOSINOPHILS % (AUTO) 0.1 %; HGB - HEMOGLOBIN 15.5 g/dL (12.0-16.0); LYMPHOCYTES # (AUTO) 0.5 10^3/uL (1.5-3.5); LYMPHOCYTES % (AUTO) 3.4 %; MEAN CORPUSCULAR HGB CONC 34.1 g/dL (32.0-36.0); MEAN CORPUSCULAR VOLUME 85.2 fL (81.0-99.0); MEAN PLATELET VOLUME 8.3 fL (7.9-10.8); MONOCYTES # (AUTO) 0.2 10^3/uL (0.0-1.0); MONOCYTES % (AUTO) 1.5 %; NEUTROPHILS # (AUTO) 13.8 10^3/uL (1.5-6.6); NEUTROPHILS % (AUTO) 94.9 %; PLT - PLATELET COUNT 236 10^3/uL (130-450); RED BLOOD COUNT 5.35 10^6/uL (4.20-5.40); RED CELL DISTRIBUTION WIDTH 14.3 % (12.0-15.0); WHITE BLOOD COUNT 14.6 x10^3/uL (4.8-10.8)
[2018-08-27 19:33] LABS: ALBUMIN/GLOBULIN RATIO 1.5 (1.0-2.2); BILIRUBIN,TOTAL 1.1 mg/dL (0.2-1.0); CALCIUM 9.2 mg/dL (8.5-10.3); CREATININE 0.9 mg/dL (0.4-1.0); TOTAL PROTEIN 8.4 g/dL (6.7-8.2)
--- NOTE | 2018-08-27 19:53 | ED Physician Documentation ---
PD HPI NVD - Stated complaint Stated Complaint: ABD PX/VOMITING - Chief complaint Chief Complaint: Abd Pain - History obtained from History obtained from: Patient, Family - History of Present Illness Timing - onset: How many hours ago (10), Today Timing - duration: Hours (10) Timing - details: Abrupt onset Pain level max: 7 Pain level now: 4 Associated symptoms: Abdominal pain (Crampy, diffuse). 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 No: Bad food, Travel, Recent antibiotics, Alcohol use, Anticoagulated, Diabetes Improved by: Vomiting Worsened by: Eating Similar symptoms before: Has not had sx before Recently seen: Not recently seen Review of Systems Constitutional: denies: Fever Nose: denies: Rhinorrhea / runny nose Throat: denies: Sore throat Cardiac: denies: Chest pain / pressure GI: reports: Abdominal Pain (crampy), Nausea, Vomiting, Diarrhea Skin: denies: Rash Musculoskeletal: denies: Neck pain, Back pain Neurologic: denies: Headache PD PAST MEDICAL HISTORY - Past Medical History Past Medical History: Yes - Past Surgical History Past Surgical History: No General: Colonoscopy, EGD HEENT: Other - Present Medications Home Medications: Ambulatory Orders Medication Instructions Recorded Confirmed Cetirizine [ZyrTEC] 03/21/18 Vit Calc,Iron,Folic 03/21/18 [ Vitamins] Ondansetron Odt [Zofran] 4 mg TL Q6H PRN #10 tablet 08/27/18 - Allergies Allergies/Adverse Reactions: Allergies Allergy/AdvReac Type Severity Reaction Status Date / Time Iodinated Contrast- Oral and Allergy Severe Anaphylaxis Verified 08/27/18 18:58 IV Dye iodine Allergy Severe Anaphylaxis Verified 08/27/18 18:58 NSAIDS (Non-Steroidal Allergy Severe Anaphylaxis Verified 02/20/18 17:01 Anti-Inflamma omeprazole [From Prilosec] Allergy Severe Anaphylaxis Verified 08/27/18 18:58 peanut Allergy Severe Anaphylaxis Verified 08/27/18 18:58 shellfish derived Allergy Severe Anaphylaxis Verified 08/27/18 18:58 Sulfa (Sulfonamide Allergy Severe Anaphylaxis Verified 08/27/18 18:58 Antibiotics) tree nut Allergy Severe Anaphylaxis Verified 08/27/18 18:58 latex AdvReac Itching Verified 08/27/18 18:58 nifedipine AdvReac Anaphylaxis Verified 08/27/18 18:58 terbutaline AdvReac Anaphylaxis Verified 03/21/18 19:25 - Social History Does the pt smoke?: No Smoking Status: Never smoker Does the pt drink ETOH?: No Does the pt have substance abuse?: No - Immunizations Immunizations are current?: Yes PD ED PE NORMAL - Vitals Vital signs reviewed: Yes - General General: Alert and oriented X 3, No acute distress - HEENT HEENT: PERRL, Other (dry lips) - Neck Neck: Supple, no meningeal sign - Cardiac Cardiac: RRR - Respiratory Respiratory: No respiratory distress, Clear bilaterally - Abdomen Abdomen: Soft, Non tender, Non distended - Back Back: No CVA TTP - Derm Derm: Warm and dry, No rash - Extremities Extremities: No edema - Neuro Neuro: Alert and oriented X 3 - Psych Psych: Normal mood, Normal affect Results - Vitals Vitals: Vital Signs - 24 hr 08/27/18 08/27/18 18:54 20:35 Temperature 36.9 C 36.0 C L Heart Rate 121 H 86 Respiratory 16 18 Rate Blood Pressure 112/67 126/74 O2 Saturation 97 99 Oxygen O2 Source Room air - Labs Labs: Laboratory Tests 08/27/18 08/27/18 08/27/18 19:05 19:10 19:10 WBC 14.6 H RBC 5.35 Hgb 15.5 Hct 45.6 MCV 85.2 MCH 29.0 MCHC 34.1 RDW 14.3 Plt Count 236 MPV 8.3 Neut # (Auto) 13.8 H Lymph # (Auto) 0.5 L [place] # (Auto) 0.2 Eos # (Auto) 0.0 Baso # (Auto) 0.0 Absolute Nucleated RBC 0.01 Nucleated RBC % 0.0 Sodium 140 Potassium 3.9 Chloride 101 Carbon Dioxide 22 Anion Gap 17.0 H BUN 20 Creatinine 0.9 Estimated GFR (MDRD) 77 L Glucose 114 H Calcium 9.2 Total Bilirubin 1.1 H AST 22 ALT 20 Alkaline Phosphatase 111 Total Protein 8.4 H Albumin 5.0 Globulin 3.4 Albumin/Globulin Ratio 1.5 Lipase 25 Urine Color YELLOW Urine Clarity CLEAR Urine pH 5.5 Ur Specific [place] >=1.030 H Urine Protein TRACE Urine Glucose (UA) NEGATIVE Urine Ketones >=80 H Urine Occult Blood SMALL H Urine Nitrite NEGATIVE Urine Bilirubin NEGATIVE Urine Urobilinogen 0.2 (NORMAL) Ur Leukocyte Esterase NEGATIVE Urine RBC 0-5 Urine WBC 0-3 Ur Squamous Epith Cells FEW Squamous Urine Bacteria None Seen Ur Microscopic Review INDICATED Urine Culture Comments NOT INDICATED Urine HCG, Qual NEGATIVE PD MEDICAL DECISION MAKING - ED course Complexity details: reviewed results, re-evaluated patient, considered differential, d/w patient, d/w family ED course: 22-year-old female with viral gastroenteritis. She is well-appearing, nontoxic. Afebrile. Tolerating p.o. without difficulty after Zofran and IV fluids. Patient counseled regarding signs and symptoms for which I believe and urgent re-evaluation would be necessary. Patient with good understanding of and agreement to plan and is comfortable going home at this time This document was made in part using voice recognition software. While efforts are made to proofread this document, sound alike and grammatical errors may occur. Abdomen remains soft, nontender nondistended on serial exam Departure - Departure Disposition: 01 Home, Self Care Clinical Impression: Viral gastroenteritis Condition: Good Instructions: ED Gastroenteritis Viral Follow-Up: your,doctor in 1 week if not better [Other] Prescriptions: Ondansetron Odt [Zofran] 4 mg TL Q6H PRN #10 tablet PRN Reason: Nausea / Vomiting Comments: Drink plenty of fluids and rest. Return if you worsen. Forms: Activity restrictions Discharge Date/Time: 08/27/18 20:58
[2018-08-27 20:36] VITALS: BP 126/74
== END 2018-08-27 20:58 | disposition home or self-care (01) ==
LOC: ED 18:51
DX: A08.4 Viral intestinal infection, unspecified (principal)
CPT/HCPCS: 36415; 80053; 81001; 81003; 81025; 83690; 85025; 87086; 96360; 99283

== ENCOUNTER 2019-06-10 10:42 | Outpatient (CLI) | payer BC, OTHER ==
--- NOTE | 2019-06-10 14:32 | Ultrasound Report ---
Reason: TEST POSITIVE Procedure Date: 06/10/2019 Accession Number: [id number] / [id number] Procedure: US - OB First Trimester CPT Code: Final Report FULL RESULT: EXAM: FIRST TRIMESTER OBSTETRIC ULTRASOUND (Less than 11 weeks) EXAM DATE: 06/10/2019 11:48 AM. CLINICAL HISTORY: TEST POSITIVE. LMP: 04/12/2019. COMPARISONS: None. TECHNIQUE: Transabdominal ultrasound examination with static image documentation. CLINICAL DATES: EGA 8 weeks, 3 days with RAYNA 01/17/2020 based on LMP. ASSESSMENT: Gestational Sac: Single intrauterine. Mean gestational sac diameter: 35 mm = 8 weeks, 5 days. Embryo: CRL (crown-rump length) 18 mm = 8 weeks, 2 days. Cardiac activity: 169 beats per minute. Yolk sac: 4.7 mm. Amniotic fluid: Not accurately assessed at this gestational age. Early placenta: Not visible at this gestational age. Other: Perigestational bleed measures 1.5 x 1.7 x 1.7 cm, 2.3 mL. MATERNAL STRUCTURES: Uterus: Anteverted. Unremarkable. Cervix: Closed. Right Ovary/Adnexa: The ovary measures 4.1 x 2.1 x 2.8 cm. Unremarkable. Left Ovary/Adnexa: The ovary measures 3.1 x 2.0 x 2.2 cm. 1.3 cm corpus luteal cyst. Free Fluid: None. Other: None. IMPRESSION: 1. Single viable intrauterine at EGA 8 weeks, 2 days with RAYNA 01/18/2020 based on crown-rump length, which is concordant with clinical dates. 2. Assigned dating is RAYNA 01/17/2020 based on LMP. 3. Small to moderate perigestational bleed. RADIA
== END 2019-06-10 10:43 | disposition home or self-care (01) ==
LOC: DI 10:42
PROVIDERS: ATTEND Nurse Practitioner Obstetrics & Gynecology
DX: O20.9 Hemorrhage in early pregnancy, unspecified (principal); Z3A.08 8 weeks gestation of pregnancy
CPT/HCPCS: 76801

== ENCOUNTER 2019-06-10 14:00 | Outpatient (CLI) | payer BC, OTHER ==
[2019-06-11 16:06] LABS: BILIRUBIN,URINE NEGATIVE (NEGATIVE); GLUCOSE, URINE (UA) NEGATIVE (NEGATIVE); KETONES,URINE (UA) NEGATIVE (NEGATIVE); LEUKOCYTE ESTERASE, URINE NEGATIVE (NEGATIVE); NITRITE,URINE NEGATIVE (NEGATIVE); OCCULT BLOOD,URINE NEGATIVE (NEGATIVE); PROTEIN,URINE NEGATIVE (NEGATIVE); UROBILINOGEN,URINE 0.2 (NORMAL) E.U./dL (NORMAL)
[2019-06-11 16:09] LABS: CLARITY,URINE CLEAR (CLEAR)
[2019-06-11 16:25] LABS: AMORPHOUS SEDIMENT,UR Marked /LPF; BACTERIA,URINE None Seen /HPF (None Seen); RBC,URINE 0-5 /HPF (0-5); SQUAMOUS EPITHELIAL CELL,UR MOD Squamous (<= Few)
== END 2019-06-10 23:59 | disposition home or self-care (01) ==
LOC: LAB.R 14:00
PROVIDERS: ATTEND Obstetrics & Gynecology
DX: Z34.90 Encounter for supervision of normal pregnancy, unspecified, unspecified trimester (principal)
CPT/HCPCS: 81001; 87086

== ENCOUNTER 2019-06-29 12:48 | Outpatient (CLI) | payer BC, OTHER ==
[2019-06-29 13:17] LABS: BASOPHILS % (AUTO) 0.3 %; EOSINOPHILS % (AUTO) 0.4 %; HGB - HEMOGLOBIN 12.9 g/dL (12.0-16.0); LYMPHOCYTES # (AUTO) 2.4 10^3/uL (1.5-3.5); LYMPHOCYTES % (AUTO) 25.4 %; MEAN CORPUSCULAR HEMOGLOBIN 29.1 pg (27.0-31.0); MEAN CORPUSCULAR HGB CONC 33.8 g/dL (32.0-36.0); MEAN PLATELET VOLUME 9.5 fL (7.9-10.8); MONOCYTES # (AUTO) 0.5 10^3/uL (0.0-1.0); MONOCYTES % (AUTO) 4.8 %; NEUTROPHILS # (AUTO) 6.5 10^3/uL (1.5-6.6); NEUTROPHILS % (AUTO) 68.7 %; PLT - PLATELET COUNT 216 10^3/uL (130-450); RED BLOOD COUNT 4.44 10^6/uL (4.20-5.40); RED CELL DISTRIBUTION WIDTH 12.2 % (12.0-15.0); WHITE BLOOD COUNT 9.5 x10^3/uL (4.8-10.8)
[2019-06-30 12:35] LABS: HEPATITIS B SURFACE ANTIGEN NON-REACTIVE (NON-REACTIVE)
[2019-06-30 13:32] LABS: HEPATITIS C ANTIBODY NON-REACTIVE (NON-REACTIVE)
[2019-06-30 13:47] LABS: HIV AG/AB 4TH GEN NON-REACTIVE (NON-REACTIVE)
[2019-06-30 21:54] LABS: TRICHOMONAS VAGINALIS DNA NEGATIVE (NEGATIVE)
== END 2019-06-29 12:49 | disposition home or self-care (01) ==
LOC: LAB 12:48
PROVIDERS: ATTEND Obstetrics & Gynecology
DX: Z34.90 Encounter for supervision of normal pregnancy, unspecified, unspecified trimester (principal)
CPT/HCPCS: 36415; 81599; 85025; 86592; 86762; 86803; 86850; 86900; 86901; 87340; 87389; 87491; 87591; 87661

== ENCOUNTER 2019-08-26 08:15 | Outpatient (CLI) | payer BC, OTHER ==
--- NOTE | 2019-08-27 11:11 | Ultrasound Report ---
Reason: Procedure Date: 08/26/2019 Accession Number: [id number] / [id number] Procedure: US - OB Detailed Eval CPT Code: Final Report FULL RESULT: EXAM: COMPLETE OBSTETRICAL ULTRASOUND EXAM DATE: 08/26/2019 09:06 AM. CLINICAL HISTORY: anatomic survey. COMPARISON: OB FIRST TRIMESTER 06/10/2019 11:18 AM. TECHNIQUE: Real-time sonographic evaluation of the fetus performed by the strip deburrer. Multiple business representative static images were saved for review. DATING: Established EGA 19 weeks 3 days with RAYNA 01/17/2020 based on LMP. EGA 19 weeks 2 days with RAYNA 01/18/2020 based on prior ultrasound on 06/10/2019. EGA 19 weeks 2 days with RAYNA 01/18/2020 based on the current ultrasound. GENERAL EVALUATION Do . Cardiac activity: 137 bpm. movement: Visualized. Presentation: Cephalic. Placenta: Anterior position. No evidence for previa. Umbilical cord: 3 vessel cord. Central placental cord origin. Amniotic fluid: Subjectively normal. MVP 3.3 cm. BIOMETRY Bi-Parietal Diameter (BPD): 4.42 cm, 19 weeks 3 days. Head Circumference (HC): 16.45 cm, 19 weeks 1 day. Abdominal Circumference (AC): 13.58 cm, 19 weeks 0 days. Femur Length (FL): 3.03 cm, 19 weeks 3 days. Estimated Weight: 279 g, 32nd percentile for 19 weeks 3 days. ANATOMY The intracranial structures, profile, face/nose/lips, spine, 4 chamber heart and outflow tracts, stomach, abdominal wall and cord insertion, diaphragm, kidneys, bladder, and extremities were visualized and demonstrate no abnormality. Nuchal fold thickness measures 3.0 mm, normal. MATERNAL STRUCTURES Uterus: Unremarkable. Cervix: Long and closed. Transabdominal length 5.5 cm. Right ovary/adnexa: Unremarkable. Left ovary/adnexa: Unremarkable. Free fluid: None. IMPRESSION: 1. Do live intrauterine with gestational age 19 weeks 3 days based on LMP. 2. Estimated weight is within expected limits for assigned dating. 3. Normal anatomic survey. No anatomic abnormalities are detected at this time. RADIA
== END 2019-08-26 08:16 | disposition home or self-care (01) ==
LOC: DI 08:15
PROVIDERS: ATTEND Obstetrics & Gynecology
DX: Z36.89 Encounter for other specified antenatal screening (principal)
CPT/HCPCS: 76811

== ENCOUNTER 2019-09-03 08:00 | Outpatient (CLI) | payer BC, OTHER | END 2019-09-03 23:59 | disposition home or self-care (01) | LOC: LAB.WCP 08:00 | PROVIDERS: ATTEND Obstetrics & Gynecology | DX: Z34.90 Encounter for supervision of normal pregnancy, unspecified, unspecified trimester (principal); Z36.8A Encounter for antenatal screening for other genetic defects | CPT/HCPCS: 36415; 81511; 81599 ==

== ENCOUNTER 2019-10-06 08:57 | Outpatient (CLI) | payer BC, OTHER ==
[2019-10-06 11:47] LABS: HGB - HEMOGLOBIN 12.3 g/dL (12.0-16.0); MEAN CORPUSCULAR HEMOGLOBIN 31.7 pg (27.0-31.0); MEAN CORPUSCULAR HGB CONC 33.6 g/dL (32.0-36.0); MEAN CORPUSCULAR VOLUME 94.3 fL (81.0-99.0); MEAN PLATELET VOLUME 10.5 fL (7.9-10.8); RED BLOOD COUNT 3.88 10^6/uL (4.20-5.40); RED CELL DISTRIBUTION WIDTH 13.2 % (12.0-15.0); WHITE BLOOD COUNT 8.6 x10^3/uL (4.8-10.8)
== END 2019-10-06 23:59 | disposition home or self-care (01) ==
LOC: LAB.WCP 08:57
PROVIDERS: ATTEND Obstetrics & Gynecology
DX: Z34.90 Encounter for supervision of normal pregnancy, unspecified, unspecified trimester (principal)
CPT/HCPCS: 36415; 82950; 85027; 86850